=== PATIENT | male | born 1990 | race Caucasian/White ===

== ENCOUNTER 2018-05-23 17:23 | Emergency (ER) | payer MEDICAID ==
[~2018-05-23] VITALS: Ht 160 cm; Wt 63.5 kg
[2018-05-23 17:53] VITALS: BP 136/72; Ht 160 cm; Wt 63.5 kg
== END 2018-05-23 19:23 | disposition home or self-care (01) ==
LOC: ED 17:23
DX: S82.844A Nondisplaced bimalleolar fracture of right lower leg, initial encounter for closed fracture (principal); X50.1XXA Overexertion from prolonged static or awkward postures, initial encounter; Y93.89 Activity, other specified; Y92.89 Other specified places as the place of occurrence of the external cause; Y99.8 Other external cause status